=== PATIENT | female | born 1950 | race Caucasian/White ===

== ENCOUNTER → 2021-05-21 | Day surgery (SDC) | payer MEDICARE, OTHER ==
[~2021-05-21] VITALS: Ht 165.1 cm; Wt 77.1 kg
[~2021-05-21] MED LIST: CLARITIN10 MG PO; CO-ENZYME Q101 EACH PO; COZAAR100 MG PO; LASIX20 MG PO; LOVAZA1 GM PO; NORVASC5 MG PO; SINGULAIR 10MG10 MG PO; SYMBICORT 80-10.2 GM INH; SYNTHROID100 MCG PO; TOPROL XL 50 MG50 MG PO; VENTOLIN HFA IN18 GM INH; VITAMIN D3125 MC1 PO; ZOCOR40 MG PO
== END | disposition home or self-care (01) ==
LOC: FAS 06:27
DX: Z12.11 Encounter for screening for malignant neoplasm of colon (principal); D12.2 Benign neoplasm of ascending colon; D12.4 Benign neoplasm of descending colon; D12.5 Benign neoplasm of sigmoid colon; K21.9 Gastro-esophageal reflux disease without esophagitis; R13.10 Dysphagia, unspecified; J44.9 Chronic obstructive pulmonary disease, unspecified; E78.5 Hyperlipidemia, unspecified; I10 Essential (primary) hypertension; E03.9 Hypothyroidism, unspecified; J45.909 Unspecified asthma, uncomplicated; Z86.010 Personal history of colon polyps; Z88.5 Allergy status to narcotic agent
CPT/HCPCS: J2250; J2704; J7120